=== PATIENT | male | born 1960 | race Caucasian/White ===

== ENCOUNTER → 2019-09-27 | Outpatient (CLI) | payer BC ==
[~2019-09-27] MED LIST: AMIO200T50 PO; AMLO2.5T PO; ASP81TEC PO; ATOR40TA PO; CARV3.12 PO; CLOP75TA PO; ESOM2.5S PO; LISI2.5T PO; MTP25TSR PO; PNT40TEC PO
== END ==
LOC: LAB 17:04
PROVIDERS: ATTEND Family Medicine
DX: E87.5 Hyperkalemia (principal)
CPT/HCPCS: 36415; 84132

== ENCOUNTER 2021-11-18 12:37 | Emergency (ER) | payer BC ==
[~2021-11-18] VITALS: Ht 180.3 cm; Wt 97.1 kg
[2021-11-18] MEDS ORDERED: KETOROLAC 30 MG/ML VIAL ONE (12:43)
--- NOTE | 2021-11-18 12:52 | ED Abdominal Pain ---
General Chief Complaint: Abdominal/GI Problems Stated Complaint: ABD PAIN Source of Information: Patient Exam Limitations: No Limitations (FLIP DELGADILLO APRN) History of Present Illness Date Seen by Provider: Nov 18, 2021 Time Seen by Provider: 12:49 Initial Comments To ER with c/o sudden onset severe RLQ abdominal pain 1.5 hrs ago. Nontender to touch the abdomen. Two bowel movements this morning which were normal. No dysuria prior to this. no history of kidney stones, he suspects his appendix has burst. He is unable to sit still. Timing/Duration: 1 Hour, 1-2 Days Severity/Quality: Moderate Location: Generalized Abdomen Radiation: No Radiation Activities at Onset: None Associated Symptoms: Denies Symptoms (FLIP DELGADILLO APRN) Allergies and Home Medications Allergies Coded Allergies: No Known Drug Allergies (Unverified , 07/27/12) Patient Home Medication List Home Medication List Reviewed: Yes (FLIP DELGADILLO APRN) Aspirin (Aspirin Ec 81 Mg) 81 Mg Tabec, 81 MG PO DAILY, (Reported) Entered as Reported by: RANDEE CONDON on 07/31/12 1438 Atorvastatin Calcium (Lipitor 40MG) 40 Mg Tablet, 40 MG PO HS, (Reported) Entered as Reported by: RANDEE CONDON on 07/31/12 1437 Cefuroxime Axetil (Cefuroxime) 250 Mg Tablet, 250 MG PO BID Prescribed by: FLIP DELGADILLO on 11/18/21 1317 Clopidogrel Bisulfate (Plavix 75 Mg) 75 Mg Tablet, 75 MG PO DAILY, (Reported) Entered as Reported by: RANDEE CONDON on 07/31/12 1437 Ketorolac Tromethamine (Ketorolac Tromethamine) 10 Mg Tablet, 10 MG PO TID PRN for PAIN-MODERATE (5-7) Prescribed by: FLIP DELGADILLO on 11/18/21 1317 Lisinopril (Prinivil) 2.5 Mg Tablet, 2.5 MG PO DAILY, (Reported) Entered as Reported by: TORI YOON on 07/27/12 1036 Metoprolol Succinate (Toprol Xl 25MG) 25 Mg Tab.sr.24h, 25 MG PO DAILY, (Reported) Entered as Reported by: JOVANY GRAVES on 08/12/12 1351 Oxycodone HCl/Acetaminophen (Percocet 5-325 mg Tablet) 1 Each Tablet, 1 TAB PO Q4H Prescribed by: FLIP DELGADILLO on 11/18/21 1317 Pantoprazole Sodium (Protonix) 40 Mg Tablet.dr, 40 MG PO DAILY, (Reported) Entered as Reported by: RANDEE CONDON on 07/31/12 1438 Tamsulosin HCl (Flomax) 0.4 Mg Cap, 0.4 MG PO DAILY Prescribed by: FLIP DELGADILLO on 11/18/21 1330 Review of Systems Review of Systems Constitutional: see HPI EENTM: No Symptoms Reported Respiratory: No Symptoms Reported Cardiovascular: No Symptoms Reported Gastrointestinal: See HPI Genitourinary: No Symptoms Reported Musculoskeletal: no symptoms reported Skin: no symptoms reported Psychiatric/Neurological: No Symptoms Reported Endocrine: No Symptoms Reported Hematologic/Lymphatic: No Symptoms Reported (FLIP DELGADILLO APRN) Past Ppzqwol-Jkibda-Miznhr Hx Past Medical History Reproductive Disorders: No (FLIP DELGADILLO APRN) Physical Exam Vital Signs Vital Signs - First Documented 11/18/21 12:40 Temp 35.6 Pulse 55 Resp 20 B/P (MAP) 180/111 (134) Pulse Ox 99 O2 Delivery Room Air (KAILEE DELUCA MD) Vital Signs Capillary Refill : (FLIP DELGADILLO APRN) Height/Weight/BMI Height: '" Weight: lbs. oz. kg; BMI Method:Stated General Appearance: WD/WN, severe distress HEENT: PERRL/EOMI, normal ENT inspection Respiratory: normal breath sounds, no respiratory distress, no accessory muscle use Cardiovascular: regular rate, rhythm, no murmur Gastrointestinal: normal bowel sounds, non tender, soft; No tenderness Extremities: normal range of motion, non-tender Neurologic/Psychiatric: alert, normal mood/affect, oriented x 3 Skin: normal color, warm/dry (FLIP DELGADILLO APRN) Progress/Results/Core Measures Results/Orders Lab Results Laboratory Tests Test 11/18/21 12:46 11/18/21 13:19 Range/Units White Blood Count 8.7 4.3-11.0 10^3/uL Red Blood Count 5.32 4.30-5.52 10^6/uL Hemoglobin 15.9 13.3-17.7 g/dL Hematocrit 47 40-54 % Mean Corpuscular Volume 89 80-99 fL Mean Corpuscular Hemoglobin 30 25-34 pg Mean Corpuscular Hemoglobin Concent 34 32-36 g/dL Red Cell Distribution Width 11.9 10.0-14.5 % Platelet Count 258 130-400 10^3/uL Mean Platelet Volume 8.8 L 9.0-12.2 fL Immature Granulocyte % (Auto) 0 % Neutrophils (%) (Auto) 50 42-75 % Lymphocytes (%) (Auto) 36 12-44 % Monocytes (%) (Auto) 11 0-12 % Eosinophils (%) (Auto) 2 0-10 % Basophils (%) (Auto) 1 0-10 % Neutrophils # (Auto) 4.3 1.8-7.8 10^3/uL Lymphocytes # (Auto) 3.1 1.0-4.0 10^3/uL Monocytes # (Auto) 1.0 0.0-1.0 10^3/uL Eosinophils # (Auto) 0.2 0.0-0.3 10^3/uL Basophils # (Auto) 0.1 0.0-0.1 10^3/uL Immature Granulocyte # (Auto) 0.0 0.0-0.1 10^3/uL Sodium Level 138 135-145 MMOL/L Potassium Level 4.0 3.6-5.0 MMOL/L Chloride Level 104 98-107 MMOL/L Carbon Dioxide Level 20 L 21-32 MMOL/L Anion Gap 14 5-14 MMOL/L Blood Urea Nitrogen 13 7-18 MG/DL Creatinine 1.13 0.60-1.30 MG/DL Estimat Glomerular Filtration Rate 74 BUN/Creatinine Ratio 12 Glucose Level 114 H 70-105 MG/DL Calcium Level 9.4 8.5-10.1 MG/DL Corrected Calcium 9.3 8.5-10.1 MG/DL Total Bilirubin 0.7 0.1-1.0 MG/DL Aspartate Amino Transf (AST/SGOT) 25 5-34 U/L Alanine Aminotransferase (ALT/SGPT) 30 0-55 U/L Alkaline Phosphatase 75 40-136 U/L Total Protein 7.0 6.4-8.2 GM/DL Albumin 4.1 3.2-4.5 GM/DL (KAILEE DELUCA MD) Medications Given in ED Current Medications Medications Dose Ordered Sig/Yang Route Start Time Stop Time Status Last Admin Dose Admin Cefdinir 300 mg ONCE ONCE PO 11/18/21 13:15 11/18/21 13:16 DC 11/18/21 13:30 300 MG Ketorolac Tromethamine 15 mg ONCE ONCE IVP 11/18/21 13:00 11/18/21 13:01 DC 11/18/21 12:48 15 MG Oxycodone/ Acetaminophen 1 tab ONCE ONCE PO 11/18/21 13:15 11/18/21 13:16 DC 11/18/21 13:30 1 TAB Trimethoprim/ Sulfamethoxazole 1 ea ONCE ONCE PO 11/18/21 13:15 11/18/21 13:16 DC 11/18/21 13:30 1 EA (KAILEE DELUCA MD) Vital Signs/I&O 11/18/21 12:40 Temp 35.6 Pulse 55 Resp 20 B/P (MAP) 180/111 (134) Pulse Ox 99 O2 Delivery Room Air (KAILEE DELUCA MD) Departure Communication (Admissions) NAME: N[facility]END[facility]A [facility] REC#: [id number] PT STATUS: REG ER : 1960 PHYSICIAN: FLIP DELGADILLO HUM[employer] SERVICES ASSISTANT ADMIT DATE: 11/18/21/ER Draft Date of Exam:11/18/21 CT ABD/PELVIS WO(KIDNEY STONE) PROCEDURE: CT urinary tract, rule out kidney stone. TECHNIQUE: Multiple contiguous axial images were obtained through the abdomen and pelvis without the use of intravenous contrast. Auto Exposure Controls were utilized during the CT exam to meet ALARA standards for radiation dose reduction. INDICATION: Right-sided flank pain. COMPARISON: No prior studies are available for comparison. The lung bases are clear. The liver and gallbladder are unremarkable. There is no biliary ductal dilatation. The pancreas and spleen are unremarkable. No adrenal mass is detected. No renal calculi are identified. There is moderate right-sided hydroureteronephrosis. The dilated right ureter is traced into the pelvis where there is a 3 to 4 mm calculus in the distal right ureter just above the UVJ. The left ureter is unremarkable. Aorta is nonaneurysmal. Bowel loops are normal caliber. Appendix is unremarkable. No free fluid or fluid collection is seen. Prostate is unremarkable. IMPRESSION: A 3 to 4 mm distal right ureteric calculus producing moderate hydroureteronephrosis. No other significant abnormality is identified. (FLIP DELGADILLO APRN) Impression Primary Impression: Right ureteral calculus Disposition: 01 HOME, SELF-CARE Condition: Stable Departure-Patient Inst. Decision time for Depature: 13:15 (FLIP DELGADILLO APRN) Referrals: JAYA MEDINA DO (PCP/Family) Primary Care Physician SPENCER LOYA MD Patient Instructions: No Instuctions Given, Kidney Stones (DC) Add. Discharge Instructions: 1. Pee through the strainer with each subsequent urination until you urinate out the stone. You will be able to see it when you pass it. Typically they are karissa-colored like a small piece of gravel. Yours measures about 3 to [address] scan. Take the antibiotics pain medication and nausea medication as directed. Return to ER for any fevers or intolerable pain. If you fail to pass this this week and then call Dr. Loya for an appointment All discharge instructions reviewed with patient and/or family. Voiced understanding. Scripts Tamsulosin HCl (Flomax) 0.4 Mg Cap 0.4 MG PO DAILY, #14 CAP Prov: FLIP DELGADILLO APRN 11/18/21 Oxycodone HCl/Acetaminophen (Percocet 5-325 mg Tablet) 1 Each Tablet 1 TAB PO Q4H for PAIN-MODERATE MDD 6 TABS for 7 Days, #14 TAB Prov: FLIP DELGADILLO APRN 11/18/21 Ketorolac Tromethamine (Ketorolac Tromethamine) 10 Mg Tablet 10 MG PO TID PRN for PAIN-MODERATE (5-7), #6 TAB Prov: FLIP DELGADILLO APRN 11/18/21 Cefuroxime Axetil (Cefuroxime) 250 Mg Tablet 250 MG PO BID, #10 TAB Prov: FLIP DELGADILLO APRN 11/18/21 ATTENDING PHYSICIAN NOTE: I was physically present as attending physician in the emergency department during the care of this patient, but I was not directly involved in the decision making or delivery of care for this patient. (KAILEE DELUCA MD) Copy Copies To 1: JAYA MEDINA DO; SPENECR LOYA MD, PETER J APRN Nov 18, 2021 12:52 KAILEE DELUCA MD Nov 18, 2021 13:50
[2021-11-18 12:54] LABS: BASOPHILS # (AUTO) 0.1 10^3/uL (0.0-0.1); BASOPHILS % (AUTO) 1 % (0-10); EOSINOPHILS # (AUTO) 0.2 10^3/uL (0.0-0.3); EOSINOPHILS % (AUTO) 2 % (0-10); HEMATOCRIT 47 % (40-54); HEMOGLOBIN 15.9 g/dL (13.3-17.7); LYMPHOCYTES # (AUTO) 3.1 10^3/uL (1.0-4.0); LYMPHOCYTES % (AUTO) 36 % (12-44); MEAN CORPUSCULAR HEMOGLOBIN 30 pg (25-34); MEAN CORPUSCULAR HGB CONC 34 g/dL (32-36); MEAN CORPUSCULAR VOLUME 89 fL (80-99); MEAN PLATELET VOLUME 8.8 fL (9.0-12.2); MONOCYTES % (AUTO) 11 % (0-12); NEUTROPHILS # (AUTO) 4.3 10^3/uL (1.8-7.8); NEUTROPHILS % (AUTO) 50 % (42-75); PLATELET COUNT 258 10^3/uL (130-400); WHITE BLOOD COUNT 8.7 10^3/uL (4.3-11.0)
[2021-11-18] MEDS ORDERED: KETOROLAC 30 MG/ML VIAL IVP ONE (13:00)
[2021-11-18 13:02] LABS: ALBUMIN 4.1 GM/DL (3.2-4.5)
[2021-11-18 13:04] LABS: CALCIUM 9.4 MG/DL (8.5-10.1)
[2021-11-18 13:07] LABS: BILIRUBIN,TOTAL 0.7 MG/DL (0.1-1.0)
[2021-11-18 13:08] LABS: CREATININE SERUM 1.13 MG/DL (0.60-1.30)
--- NOTE | 2021-11-18 13:13 | Diagnostic Imaging Report ---
PROCEDURE: CT urinary tract, rule out kidney stone. TECHNIQUE: Multiple contiguous axial images were obtained through the abdomen and pelvis without the use of intravenous contrast. Auto Exposure Controls were utilized during the CT exam to meet ALARA standards for radiation dose reduction. INDICATION: Right-sided flank pain. COMPARISON: No prior studies are available for comparison. The lung bases are clear. The liver and gallbladder are unremarkable. There is no biliary ductal dilatation. The pancreas and spleen are unremarkable. No adrenal mass is detected. No renal calculi are identified. There is moderate right-sided hydroureteronephrosis. The dilated right ureter is traced into the pelvis where there is a 3 to 4 mm calculus in the distal right ureter just above the UVJ. The left ureter is unremarkable. Aorta is nonaneurysmal. Bowel loops are normal caliber. Appendix is unremarkable. No free fluid or fluid collection is seen. Prostate is unremarkable. IMPRESSION: A 3 to 4 mm distal right ureteric calculus producing moderate hydroureteronephrosis. No other significant abnormality is identified. Dictated by: Dictated on workstation # [id number]
[2021-11-18] MEDS ORDERED: CEFDINIR 300 MG (OMNICEF) CAP PO ONE (13:15)
[2021-11-18] MEDS ORDERED: oxyCODONE/APAP 5/325MG (PERCOCET 5) TABLET PO ONE (13:15)
[2021-11-18] MEDS ORDERED: TRIM/SULFAMETH 160/800 (SEPTRA DS) TAB PO ONE (13:15)
[2021-11-18] MEDS ORDERED: TAMSULOSIN 0.4 MG (FLOMAX) CAP PO SCH (13:15)
[2021-11-18] MEDS ORDERED: KETO10TA PO (13:17)
[2021-11-18] MEDS ORDERED: CEFU250T80 PO (13:17)
[2021-11-18] MEDS ORDERED: OXYC1TAB87 PO (13:17)
--- NOTE | 2021-11-18 13:17 | Diagnostic Imaging Report ---
INDICATION: Right-sided flank pain. TIME OF EXAM: 1:09 PM Calculus noted in the distal right ureter on recent CT is visualized in the right pelvis. The bowel gas pattern is unremarkable. No other pathologic calcifications are seen. IMPRESSION: Right pelvic calcification corresponding to the distal right ureteric calculus. Dictated by: Dictated on workstation # [id number]
[2021-11-18] MEDS ORDERED: TMSL.4C PO (13:30)
[2021-11-18 13:41] LABS: BILIRUBIN,URINE NEGATIVE (NEGATIVE); CLARITY,URINE SL CLOUDY; COLOR,URINE YELLOW; GLUCOSE, URINE (UA) NEGATIVE (NEGATIVE); KETONES,URINE NEGATIVE (NEGATIVE); LEUKOCYTE ESTERASE ,URINE 1+ (NEGATIVE); NITRITE,URINE NEGATIVE (NEGATIVE); PROTEIN,URINE NEGATIVE (NEGATIVE)
[2021-11-18 13:44] VITALS: BP 174/103
[2021-11-18 14:04] LABS: BACTERIA,URINE TRACE /HPF; RBC,URINE 50-100 /HPF
== END 2021-11-18 13:44 | disposition home or self-care (01) ==
LOC: EDUNIT# 12:37 → ER 12:38
DX: N13.2 Hydronephrosis with renal and ureteral calculous obstruction (principal); Z79.82 Long term (current) use of aspirin; Z79.01 Long term (current) use of anticoagulants
CPT/HCPCS: 36415; 74018; 74176; 80053; 81000; 85025; 87088